=== PATIENT | female | born 1975 | race African-American/Black ===

== ENCOUNTER 2018-12-13 11:34 | Emergency (ER) | payer SELFPAY ==
[2018-12-13] MEDS ORDERED: Ketorolac Tromethamine 30 MG/ML VIAL ONE (13:22)
--- NOTE | 2018-12-13 13:41 | RAD ---
LEFT SHOULDER THREE VIEWS: HISTORY: Shoulder pain. FINDINGS: There are some minimal arthritic changes of the AC joint. There is some slight lucency within the gl enoid. This could possibly be related to previous surgery. It is somewhat equivocal. Clinical lisa elation is recommended. IMPRESSION: No acute changes. Possible postoperative changes of the glenoid. POS: FAHEEM
== END 2018-12-13 13:43 | disposition home or self-care (01) ==
LOC: ERS 11:34
DX: M62.838 Other muscle spasm (principal); Z87.891 Personal history of nicotine dependence
CPT/HCPCS: 96372; J1885

== ENCOUNTER 2022-06-20 14:05 | Emergency (ER) | payer OTHER, SELFPAY ==
[2022-06-20] MEDS ORDERED: Lidocaine 1% PF 5 ML VIAL ONE (14:56)
[2022-06-20] MEDS ORDERED: Ketorolac Tromethamine 30 MG/ML VIAL ONE (15:11)
== END 2022-06-20 15:32 | disposition home or self-care (01) ==
LOC: ERS 14:05
DX: L02.416 Cutaneous abscess of left lower limb (principal)
CPT/HCPCS: 10060; 96372; J1885

== ENCOUNTER 2023-10-18 15:05 | Emergency (ER) | payer OTHER ==
[2023-10-18] MEDS ORDERED: Ibuprofen 800 MG TAB ONE (16:09)
== END 2023-10-18 17:08 | disposition home or self-care (01) ==
LOC: ERS 15:05
DX: M54.32 Sciatica, left side (principal)

== ENCOUNTER 2024-06-12 11:36 | Emergency (ER) | payer OTHER, SELFPAY ==
[2024-06-12] MEDS ORDERED: Boostrix 0.5 ML (Tdap) VIAL (>/=7 yrs of age) ONE (12:40)
[2024-06-12] MEDS ORDERED: Lidocaine 1% w/Epinephrine 1:100K 20 ML VIAL ONE (12:47)
== END 2024-06-12 14:30 | disposition home or self-care (01) ==
LOC: ERS 11:36
DX: L72.3 Sebaceous cyst (principal); L02.212 Cutaneous abscess of back [any part, except buttock and flank]
CPT/HCPCS: 10060; 90471; 90715